=== PATIENT | female | born 1995 | race Caucasian/White ===

== ENCOUNTER 2023-07-18 13:08 | Inpatient (IN) | payer OTHER ==
[~2023-07-18] VITALS: Ht 154.9 cm; Wt 79.8 kg
[2023-08-13 13:18] LABS: HEMATOCRIT 37.4 % (36.0-45.00); HEMOGLOBIN 12.3 g/dL (12.0-15.00); MEAN CELL VOLUME 72.1 fL (80.00-100.00); MEAN CORPUSCULAR HEMOGLOBIN 23.8 pg (27.00-32.0); PLATELET COUNT 203 K/uL (150-450); RED BLOOD COUNT 5.19 M/uL (4.00-6.00); RED CELL DISTRIBUTION WIDTH 17.6 % (11.5-14.5)
[2023-08-13 13:43] LABS: INR < 0.93; PROTHROMBIN TIME 9.5 SECONDS (9.0-11.5)
[2023-08-13 13:55] LABS: ALBUMIN 2.9 gm/dL (3.4-5.0); BILIRUBIN TOTAL 0.31 mg/dL (0.3-1.2); CALCIUM 9.6 mg/dL (8.5-10.1); CREATININE SERUM 0.79 mg/dL (0.55-1.02); GFR 86.04; GLOBULINA 3.6 G/DL (2.4-3.5); POTASSIUM 4.16 mEq/L (3.5-5.1); TOTAL PROTEIN 6.5 gm/dL (6.4-8.2)
[2023-08-14] MEDS ORDERED: PRENA1 TRUE CO1 EACH (09:56)
[2023-08-14 13:28] LABS: ABG PH 7.113 (7.35-7.45); BASE EXCESS -14.1 mmol/l; BICARBONATE 15.3 mmol/l (23-25); SaO2 28.2 %
== END 2023-08-16 14:38 | disposition home or self-care (01) | DRG 768 ==
LOC: OB/GYN 08-10 13:06 → LDR 08-13 12:40 → OB/GYN 08-14 12:03
PROVIDERS: Obstetrics & Gynecology; ADMIT Obstetrics & Gynecology Gynecology; ATTEND Obstetrics & Gynecology Gynecology
PROC: 4A1HXCZ Monitoring of Products of Conception, Cardiac Rate, External Approach (ICD-10-PCS; 2023-08-13)
PROC: 10D07Z6 Extraction of Products of Conception, Vacuum, Via Natural or Artificial Opening (ICD-10-PCS; principal; 2023-08-14)
PROC: 0DQP0ZZ Repair Rectum, Open Approach (ICD-10-PCS; 2023-08-14)
PROC: 0DQR0ZZ Repair Anal Sphincter, Open Approach (ICD-10-PCS; 2023-08-14)
PROC: 0W8NXZZ Division of Female Perineum, External Approach (ICD-10-PCS; 2023-08-14)
DX: O70.3 Fourth degree perineal laceration during delivery (principal); Z37.0 Single live birth; O99.824 Streptococcus B carrier state complicating childbirth; O66.5 Attempted application of vacuum extractor and forceps; Z3A.40 40 weeks gestation of pregnancy; Z20.822 Contact with and (suspected) exposure to COVID-19

== ENCOUNTER 2023-08-06 15:45 | Outpatient (CLI) | payer OTHER | END 2023-08-06 16:40 | disposition home or self-care (01) | LOC: NST 15:45 | PROVIDERS: ATTEND Obstetrics & Gynecology | DX: Z34.83 Encounter for supervision of other normal pregnancy, third trimester (principal) ==

== ENCOUNTER 2023-08-12 11:17 | Outpatient (CLI) | payer OTHER | END 2023-08-12 12:13 | disposition home or self-care (01) | LOC: NST 11:17 | PROVIDERS: ATTEND Obstetrics & Gynecology | DX: Z34.83 Encounter for supervision of other normal pregnancy, third trimester (principal) ==